=== PATIENT | female | born 1995 | race African-American/Black ===

== ENCOUNTER 2018-07-02 20:14 | Emergency (ER) | payer OTHER ==
[~2018-07-02] VITALS: Ht 157.5 cm; Wt 110.2 kg
[2018-07-02 20:14] VITALS: BP 138/90
--- NOTE | 2018-07-02 20:48 | PHYS DOC ---
Past Medical History Past Medical History: Asthma Past Surgical History: No Surgical History Alcohol Use: None Drug Use: None Adult General Chief Complaint Chief Complaint: VAGINAL BLEEDING HPI HPI Patient is a 22 year old female who presents with vaginal bleeding while . Patient reports that her last menstrual period was early to metal May. She took a test last week which was positive. Patient woke up from a nap at approximately 1300 today with a blood clot from her vagina. Since that time she's had pink spotting. No other clots. No fever. No dysuria. No nausea or vomiting. Patient denies any trauma. Patient is 1 para 0. Patient does not know her blood type. [] Review of Systems Review of Systems Constitutional: Denies fever or chills [] Eyes: Denies change in visual acuity, redness, or eye pain [] HENT: Denies nasal congestion or sore throat [] Respiratory: Denies cough or shortness of breath [] Cardiovascular: No chest pain or palpitations[] GI: Denies abdominal pain, nausea, vomiting, bloody stools or diarrhea [] : Denies dysuria or hematuria [] Musculoskeletal: Denies back pain or joint pain [] Integument: Denies rash or skin lesions [] Neurologic: Denies headache, focal weakness or sensory changes [] Endocrine: Denies polyuria or polydipsia [] All other systems were reviewed and found to be within normal limits, except as documented in this note. Allergies Allergies Allergies Coded Allergies Type Severity Reaction Last Updated Verified No Known Drug Allergies 07/02/18 No Physical Exam Physical Exam Constitutional: Well developed, well nourished, no acute distress, non-toxic appearance. [] HENT: Normocephalic, atraumatic, bilateral external ears normal, oropharynx moist, no oral exudates, nose normal. [] Eyes: PERRLA, EOMI, conjunctiva normal, no discharge. [] Neck: Normal range of motion, no tenderness, supple, no stridor. [] Cardiovascular:Heart rate regular rhythm, no murmur [] Lungs & Thorax: Bilateral breath sounds clear to auscultation [] Abdomen: Bowel sounds normal, soft, no tenderness, no masses, no pulsatile masses. exam: EGBSUB: normal. V/V-normal, no gross bleeding. Cervix: nulliparous os, no CMT, closed, no gross bleeding [] Skin: Warm, dry, no erythema, no rash. [] Back: No tenderness, no CVA tenderness. [] Extremities: No tenderness, no cyanosis, no clubbing, ROM intact, no edema. [] Neurologic: Alert and oriented X 3, normal motor function, normal sensory function, no focal deficits noted. [] Psychologic: Affect normal, judgement normal, mood normal. [] Current Patient Data Vital Signs Vital Signs Date Time Temp Pulse Resp B/P (MAP) Pulse Ox O2 Delivery O2 Flow Rate FiO2 07/02/18 20:14 97.8 93 16 138/90 (106) 99 Room Air 97.8 Lab Values Laboratory Tests Test 07/02/18 20:24 07/02/18 20:34 07/02/18 21:11 07/02/18 21:25 Urine Collection Type Unknown Urine Color Yellow Urine Clarity Clear Urine pH 6.0 Urine Specific [place] 1.025 Urine Protein 30 mg/dL (NEG-TRACE) Urine Glucose (UA) Negative mg/dL (NEG) Urine Ketones (Stick) Negative mg/dL (NEG) Urine Blood Large (NEG) Urine Nitrite Negative (NEG) Urine Bilirubin Negative (NEG) Urine Urobilinogen Dipstick 0.2 mg/dL (0.2 mg/dL) Urine Leukocyte Esterase Trace (NEG) Urine RBC 6-10 /HPF (0-2) Urine WBC 5-10 /HPF (0-4) Urine Squamous Epithelial Cells Mod /LPF Urine Bacteria Many /HPF (0-FEW) Urine Hyaline Casts Moderate /HPF Urine Granular Casts Moderate /HPF Urine Mucus Mod /LPF POC Urine HCG, Qualitative Hcg positive (Negative) White Blood Count 12.4 x10^3/uL (4.0-11.0) H Red Blood Count 4.75 x10^6/uL (3.50-5.40) Hemoglobin 13.9 g/dL (12.0-15.5) Hematocrit 40.5 % (36.0-47.0) Mean Corpuscular Volume 85 fL (79-100) Mean Corpuscular Hemoglobin 29 pg (25-35) Mean Corpuscular Hemoglobin Concent 34 g/dL (31-37) Red Cell Distribution Width 13.4 % (11.5-14.5) Platelet Count 284 x10^3/uL (140-400) Neutrophils (%) (Auto) 67 % (31-73) Lymphocytes (%) (Auto) 23 % (24-48) L Monocytes (%) (Auto) 7 % (0-9) Eosinophils (%) (Auto) 2 % (0-3) Basophils (%) (Auto) 1 % (0-3) Neutrophils # (Auto) 8.3 x10^3uL (1.8-7.7) H Lymphocytes # (Auto) 2.8 x10^3/uL (1.0-4.8) Monocytes # (Auto) 0.8 x10^3/uL (0.0-1.1) Eosinophils # (Auto) 0.3 x10^3/uL (0.0-0.7) Basophils # (Auto) 0.1 x10^3/uL (0.0-0.2) Maternal Serum HCG Beta Subunit 41481 mIU/mL (0-5) H Sodium Level 138 mmol/L (136-145) Potassium Level 3.8 mmol/L (3.5-5.1) Chloride Level 101 mmol/L (98-107) Carbon Dioxide Level 28 mmol/L (21-32) Anion Gap 9 (6-14) Blood Urea Nitrogen 10 mg/dL (7-20) Creatinine 0.8 mg/dL (0.6-1.0) Estimated GFR (Cockcroft-Gault) 110.7 BUN/Creatinine Ratio 13 (6-20) Glucose Level 88 mg/dL (70-99) Calcium Level 9.1 mg/dL (8.5-10.1) Magnesium Level 1.7 mg/dL (1.8-2.4) L Total Bilirubin 0.2 mg/dL (0.2-1.0) Aspartate Amino Transferase (AST) 13 U/L (15-37) L Alanine Aminotransferase (ALT) 16 U/L (14-59) Alkaline Phosphatase 107 U/L (46-116) Total Protein 8.1 g/dL (6.4-8.2) Albumin 3.4 g/dL (3.4-5.0) Albumin/Globulin Ratio 0.7 (1.0-1.7) L Prothrombin Time 13.5 SEC (11.7-14.0) Prothrombin Time INR 1.1 (0.8-1.1) PTT 28 SEC (24-38) Laboratory Tests 07/02/18 21:11 Laboratory Tests 07/02/18 21:11 Microbiology 07/02/18 Wet Prep - Final, Complete EKG EKG [] Radiology/Procedures Radiology/Procedures Ultrasound showed in IUP, 6 weeks EGA[] Course & Med Decision Making Course & Med Decision Making Pertinent Labs and Imaging studies reviewed. (See chart for details) Medical decision making there is no evidence of ectopic or heterotopic . No evidence of a miscarriage. This appears to be a threatened miscarriage. Discussed findings and plan with patient who voiced understanding. Will also treat for bacterial vaginosis.[] Dragon Disclaimer Dragon Disclaimer This electronic medical record was generated, in whole or in part, using a voice recognition dictation system. Departure Departure Impression: Primary Impression: Threatened miscarriage Additional Impression: Bacterial vaginosis Disposition: HOME, SELF-CARE Condition: GOOD Referrals: NO PCP (PCP) Patient Instructions: Bacterial Vaginosis, Threatened Miscarriage Additional Instructions: Follow-up with your MATHEMATICIAN [facility] in 2 days. Your quantitative level was 24, 813 today. This number should double every 2-3 days erring a normal . And the was seen on ultrasound approximately 6 weeks along. Return to the ER if worsening vaginal bleeding, you develop a fever, or any other concerns. Scripts Metronidazole (METRONIDAZOLE) 500 Mg Tablet 500 MG PO BID, #14 TAB Prov: MONTY RODRÍGUEZ DO 07/02/18 Problem Qualifiers MONTY RODRÍGUEZ DO Jul 02, 2018 20:48
[2018-07-02 20:54] LABS: BILIRUBIN,URINE NEGATIVE (NEG); CLARITY,URINE CLEAR; COLOR,URINE YELLOW; NITRITE,URINE NEGATIVE (NEG); PROTEIN,URINE 30 mg/dL (NEG-TRACE); UROBILINOGEN,URINE 0.2 mg/dL (0.2 mg/dL)
[2018-07-02 21:11] LABS: BACTERIA,URINE MANY /HPF (0-FEW); GRANULAR CASTS,URINE MODERATE /HPF; HYALINE CASTS, URINE MODERATE /HPF; SQUAMOUS EPITHELIAL CELL,UR MOD /LPF
[2018-07-02 21:20] LABS: BASO # 0.1 x10^3/uL (0.0-0.2); BASO % 1 % (0-3); EOS # 0.3 x10^3/uL (0.0-0.7); EOS % 2 % (0-3); HEMATOCRIT 40.5 % (36.0-47.0); HEMOGLOBIN 13.9 g/dL (12.0-15.5); LYMPH # 2.8 x10^3/uL (1.0-4.8); LYMPH % 23 % (24-48); MEAN CORPUSCULAR HEMOGLOBIN 29 pg (25-35); MEAN CORPUSCULAR HGB CONC 34 g/dL (31-37); MEAN CORPUSCULAR VOLUME 85 fL (79-100); MONO # 0.8 x10^3/uL (0.0-1.1); MONO % 7 % (0-9); NEUT # 8.3 x10^3uL (1.8-7.7); NEUT % 67 % (31-73); PLATELET COUNT 284 x10^3/uL (140-400); RED BLOOD COUNT 4.75 x10^6/uL (3.50-5.40); RED CELL DISTRIBUTION WIDTH 13.4 % (11.5-14.5); WHITE BLOOD COUNT 12.4 x10^3/uL (4.0-11.0)
[2018-07-02 21:35] LABS: CALCIUM 9.1 mg/dL (8.5-10.1); CREATININE 0.8 mg/dL (0.6-1.0); GFR 110.7; POTASSIUM 3.8 mmol/L (3.5-5.1)
[2018-07-02 21:41] LABS: ALBUMIN 3.4 g/dL (3.4-5.0); ALBUMIN/GLOBULIN RATIO 0.7 (1.0-1.7); MAGNESIUM 1.7 mg/dL (1.8-2.4); TOTAL BILIRUBIN 0.2 mg/dL (0.2-1.0); TOTAL PROTEIN 8.1 g/dL (6.4-8.2)
[2018-07-02 21:57] LABS: PROTHROMBIN TIME PATIENT 13.5 SEC (11.7-14.0)
--- NOTE | 2018-07-02 22:14 | RAD ---
Indication:, SPOTTING TECHNIQUE: Ultrasound OB. COMPARISON: None FINDINGS: The cervix is closed. The uterus is anteverted and measures 8.6 x 4.0 x 4.2 cm (longitudinal, AP, transverse). Single intrauterine gestation sac is seen. Yolk sac is seen measuring 2.7 mm in diameter. pole is seen with crown-rump length measuring 0.55 cm corresponding to gestation age of 6 weeks 2 days. Heart rate is seen at the rate of 125 bpm. The left ovary measures 2.3 x 1.7 x 1.6 cm and demonstrates evidence of blood flow. The right ovary measures 3.3 x 1.6 x 1.3 cm and demonstrates blood flow. Nabothian cyst is seen in the cervix. IMPRESSION: 1. Single live viable intrauterine with estimated gestation age of 6 weeks 2 days. Electronically signed by: Chriss Mora DO (07/02/2018 10:10 PM) [facility]
[2018-07-02] MEDS ORDERED: METR-84 PO (22:28)
== END 2018-07-02 22:52 | disposition home or self-care (01) ==
LOC: ER 20:14
DX: O20.0 Threatened abortion (principal); O23.591 Infection of other part of genital tract in pregnancy, first trimester; N76.0 Acute vaginitis; B96.89 Other specified bacterial agents as the cause of diseases classified elsewhere; O99.511 Diseases of the respiratory system complicating pregnancy, first trimester; J45.909 Unspecified asthma, uncomplicated; Z3A.01 Less than 8 weeks gestation of pregnancy
CPT/HCPCS: 76817; 80053; 81001; 81025; 83735; 84702; 85025; 85610; 85730; 86900; 86901; 99284; Q0111